=== PATIENT | male | born 1960 ===

== ENCOUNTER 2024-11-19 08:36 | Emergency (ER) | payer OTHER ==
[2024-11-19] MEDS ORDERED: Dexamethasone 10 MG/ML VIAL ONE (09:21)
[2024-11-19] MEDS ORDERED: Acetaminophen 500 MG TAB ONE (09:21)
[2024-11-19] MEDS ORDERED: Ketorolac Tromethamine 30 MG (1 mL) VIAL ONE (09:21)
[2024-11-19] MEDS ORDERED: Metoclopramide HCl 10 MG TAB ONE (09:25)
== END 2024-11-19 10:02 ==
LOC: ERS 08:36
DX: R51.9 Headache, unspecified (principal); E11.9 Type 2 diabetes mellitus without complications; I10 Essential (primary) hypertension
CPT/HCPCS: J1100; J1885